=== PATIENT | female | born 1935 | race Caucasian/White ===

== ENCOUNTER 2018-07-15 20:41 | Emergency (ER) | payer OTHER ==
[~2018-07-15] VITALS: Ht 160 cm; Wt 61.2 kg
[2018-07-15 22:38] VITALS: BP 163/52
== END 2018-07-15 22:38 ==
LOC: ER 20:41
DX: S49.81XA Other specified injuries of right shoulder and upper arm, initial encounter (principal); S69.81XA Other specified injuries of right wrist, hand and finger(s), initial encounter; I10 Essential (primary) hypertension; E03.9 Hypothyroidism, unspecified; M19.90 Unspecified osteoarthritis, unspecified site; E78.5 Hyperlipidemia, unspecified; F32.9 Major depressive disorder, single episode, unspecified; F41.9 Anxiety disorder, unspecified; W18.30XA Fall on same level, unspecified, initial encounter; Y93.89 Activity, other specified; Y92.89 Other specified places as the place of occurrence of the external cause; Y99.8 Other external cause status